=== PATIENT | female | born 1950 | race Caucasian/White ===

== ENCOUNTER → 2017-12-05 | Outpatient (CLI) | payer MEDICARE | END | disposition home or self-care (01) | LOC: RAH 11:00 | PROVIDERS: ATTEND Family Medicine | DX: R92.8 Other abnormal and inconclusive findings on diagnostic imaging of breast (principal); Z85.3 Personal history of malignant neoplasm of breast | CPT/HCPCS: 77065 ==

== ENCOUNTER → 2018-09-23 | Outpatient (CLI) | payer OTHER | END | disposition home or self-care (01) | LOC: RAH 12:39 | PROVIDERS: ATTEND Family Medicine | DX: N63.13 Unspecified lump in the right breast, lower outer quadrant (principal); R92.2 Inconclusive mammogram | CPT/HCPCS: 76641; 77065 ==

== ENCOUNTER → 2019-04-07 | Outpatient (CLI) | payer OTHER | END | disposition home or self-care (01) | LOC: RAH 08:47 | PROVIDERS: ATTEND Internal Medicine Gastroenterology | DX: R13.10 Dysphagia, unspecified (principal); K22.2 Esophageal obstruction | CPT/HCPCS: 74240 ==

== ENCOUNTER → 2020-08-24 | Outpatient (CLI) | payer OTHER | END | disposition home or self-care (01) | LOC: RAH 10:37 | PROVIDERS: ATTEND Family Medicine | DX: N64.89 Other specified disorders of breast (principal); Z85.3 Personal history of malignant neoplasm of breast | CPT/HCPCS: 77065 ==

== ENCOUNTER → 2021-10-02 | Outpatient (CLI) | payer OTHER | END | disposition home or self-care (01) | LOC: RAH 13:28 | PROVIDERS: ATTEND Family Medicine | DX: R92.2 Inconclusive mammogram (principal); Z85.3 Personal history of malignant neoplasm of breast | CPT/HCPCS: 77065 ==

== ENCOUNTER → 2022-10-03 | Outpatient (CLI) | payer OTHER | END | disposition home or self-care (01) | LOC: RAH 12:45 | PROVIDERS: ATTEND Family Medicine | DX: R92.2 Inconclusive mammogram (principal); Z85.3 Personal history of malignant neoplasm of breast | CPT/HCPCS: 77065 ==

== ENCOUNTER → 2023-11-01 | Outpatient (CLI) | payer OTHER | END | disposition home or self-care (01) | LOC: RAH 10:47 | PROVIDERS: ATTEND General Practice | DX: R92.30 Dense breasts, unspecified (principal); Z85.3 Personal history of malignant neoplasm of breast | CPT/HCPCS: 77065 ==

== ENCOUNTER → 2024-11-04 | Outpatient (CLI) | payer OTHER ==
--- NOTE | 2024-11-04 11:17 | HMCIMG ---
PROCEDURE: MAMMO DX UNILATERAL RIGHT HISTORY: Breast cancer COMPARISON: None TECHNIQUE: Right breast digital diagnostic mammogram with CAD was performed. No additional views were obtained. FINDINGS: The breast is extremely dense which lowers the sensitivity of mammogram. Vascular calcifications are seen. There is no evidence of a dominant mass, or suspicious microcalcification. There is no evidence of nipple retraction or skin thickening. IMPRESSION: 1. Stable right breast mammogram. BI-RADS: CATEGORY 2: BENIGN FINDINGS Recommend monthly self breast exam as well as annual clinical examination. A negative x-ray should not delay biopsy if a dominant or clinically suspicious mass is present, since 8-10% of cancers are not identified by mammography. Dense breasts particularly, may obscure an underlying neoplasm. Some of these may be detected clinically and therefore, clinical examination is an essential part of breast evaluation.
== END | disposition home or self-care (01) ==
LOC: RAH 10:44
PROVIDERS: ATTEND General Practice
DX: R92.341 Mammographic extreme density, right breast (principal); R92.1 Mammographic calcification found on diagnostic imaging of breast; Z85.3 Personal history of malignant neoplasm of breast
CPT/HCPCS: 77065